=== PATIENT | female | born 1975 | race Caucasian/White ===

== ENCOUNTER 2017-09-27 08:04 | Day surgery (SDC) | payer OTHER ==
[~2017-09-27] VITALS: Ht 170.2 cm; Wt 58.2 kg
[~2017-09-27 08:04] MED LIST: BUPIVACAINE 0.25% ONE; ISOSULFAN BLUE 10 MG/ML, 5ML IV ONE; THYR60TA PO
[2017-09-27] MEDS ORDERED: ONDANSETRON ODT 8 MG PO ONE (09:00)
[2017-09-27] MEDS ORDERED: OXYcodone IR 5MG TABLET PO ONE (09:00)
[2017-09-27] MEDS ORDERED: ACETAMINOPHEN 500 MG TABLET PO ONE (09:00)
[2017-09-27] MEDS ORDERED: DIAZEPAM 5 MG TABLET PO ONE ×2 (09:00→15:00)
[2017-09-27] MEDS ORDERED: SCOPOLAMINE PATCH, 1.5MG PATCH.TD72 TD ONE (09:00)
[2017-09-27 09:21] VITALS: BP 116/76
[2017-09-27] MEDS ORDERED: FENTANYL PF 250 MCG/5ML ONE (09:32)
[2017-09-27] MEDS ORDERED: MIDAZOLAM 1 MG/ML, 2ML ONE (09:32)
[2017-09-27] MEDS ORDERED: FENTANYL PF 100 MCG/2ML IV PRN (10:00)
[2017-09-27] MEDS ORDERED: PROMETHAZINE 12.5 MG SUPP PR PRN (10:00)
[2017-09-27] MEDS ORDERED: HYDROmorphone 1 MG/ML, 1ML IV PRN (10:00)
[2017-09-27] MEDS ORDERED: MEPERIDINE/PF 25MG/0.5ML IVPush PRN (10:00)
[2017-09-27] MEDS ORDERED: OXYcodone 5 MG/5 ML ORAL.SOL UDC PO PRN (10:00)
[2017-09-27] MEDS ORDERED: BUPIVACAINE/PF-EPI 0.25% 1:200K IM ONE (10:54)
[2017-09-27] MEDS ORDERED: OXYcodone 5 MG/5 ML ORAL.SOL UDC ONE (13:42)
[2017-09-27] MEDS ORDERED: DIAZEPAM 5 MG TABLET ONE (14:16)
[2017-09-27] MEDS ORDERED: CEFAZOLIN 1,000 MG ONE (15:35)
[2017-09-27] MEDS ORDERED: DEXAMETHASONE 4 MG/ML, 5ML ONE (15:35)
[2017-09-27] MEDS ORDERED: PROPOFOL 10 MG/ML, 50ML ONE (15:35)
[2017-09-27] MEDS ORDERED: ONDANSETRON 2MG/ML, 2ML ONE (15:35)
[2017-09-27] MEDS ORDERED: KETOROLAC 30 MG/1 ML ONE (15:35)
== END 2017-09-27 16:40 ==
LOC: OUT 08:04
PROVIDERS: ATTEND Surgery
DX: C50.912 Malignant neoplasm of unspecified site of left female breast (principal); E03.9 Hypothyroidism, unspecified; Z98.890 Other specified postprocedural states; Z72.89 Other problems related to lifestyle
CPT/HCPCS: 19303; 38525; 88305; 88307; 88331; J0690; J1100; J1885; J2250; J2405; J2704; J3010; J3490

== ENCOUNTER → 2017-10-18 | Outpatient (CLI) | payer OTHER ==
[~2017-10-18] MED LIST changes: -BUPIVACAINE 0.25% ONE; -ISOSULFAN BLUE 10 MG/ML, 5ML IV ONE
== END | disposition home or self-care (01) ==
LOC: ROC 14:09
PROVIDERS: ATTEND Radiology Radiation Oncology
DX: Z08 Encounter for follow-up examination after completed treatment for malignant neoplasm (principal); C50.912 Malignant neoplasm of unspecified site of left female breast
CPT/HCPCS: 99214; G0463

== ENCOUNTER 2017-10-25 06:03 | Day surgery (SDC) | payer OTHER ==
[~2017-10-25] VITALS: Ht 170.2 cm; Wt 57.0 kg
[2017-10-25] MEDS ORDERED: LACTATED RINGERS 1,000 ML IV SCH (06:34)
[2017-10-25 06:39] VITALS: BP 101/65
[2017-10-25] MEDS ORDERED: HEPARIN 1,000 UNITS/ML, 10ML ONE (06:53)
[2017-10-25] MEDS ORDERED: BUPIVACAINE/PF-EPI 0.5% 1:200K ONE (06:53)
[2017-10-25] MEDS ORDERED: ONDANSETRON 2MG/ML, 2ML ONE ×2 (07:28)
[2017-10-25] MEDS ORDERED: FENTANYL PF 100 MCG/2ML ONE ×2 (07:28)
[2017-10-25] MEDS ORDERED: KETOROLAC 30 MG/1 ML ONE (07:28)
[2017-10-25] MEDS ORDERED: CEFAZOLIN 1,000 MG ONE (07:28)
[2017-10-25] MEDS ORDERED: MIDAZOLAM 1 MG/ML, 2ML ONE (07:28)
[2017-10-25] MEDS ORDERED: DEXAMETHASONE 4 MG/ML, 1ML ONE ×2 (07:28)
[2017-10-25] MEDS ORDERED: PROPOFOL 10 MG/ML, 50ML ONE (07:28)
[2017-10-25] MEDS ORDERED: HEPARIN 1,000 UNITS/ML, 10ML IV ONE (07:49)
[2017-10-25] MEDS ORDERED: BUPIVACAINE/PF 0.5% INFIL ONE (07:49)
[2017-10-25] MEDS ORDERED: LORazepam 2 MG/ML, 1ML IVPush PRN (08:30)
[2017-10-25] MEDS ORDERED: HALOPERIDOL 5 MG/ML IV PRN (08:30)
[2017-10-25] MEDS ORDERED: ONDANSETRON 2MG/ML, 2ML IV PRN (08:30)
[2017-10-25] MEDS ORDERED: MEPERIDINE/PF 25MG/0.5ML IVPush PRN (08:30)
[2017-10-25] MEDS ORDERED: OXYcodone 5 MG/5 ML ORAL.SOL UDC PO PRN (08:30)
[2017-10-25] MEDS ORDERED: HYDROmorphone 1 MG/ML, 1ML IV PRN (08:30)
[2017-10-25] MEDS ORDERED: ACETAMINOPHEN 325 MG TABLET PO PRN (08:30)
[2017-10-25] MEDS ORDERED: FENTANYL PF 100 MCG/2ML IV PRN (08:30)
[2017-10-25] MEDS ORDERED: OXYcodone 5 MG/5 ML ORAL.SOL UDC ONE (08:41)
[2017-10-25] MEDS ORDERED: OMNIPAQUE 350 MG/ML, 100ML BOTTLE ONE (15:12)
== END 2017-10-25 09:45 ==
LOC: OUT 06:03 → CFH 09:45 → EDSTATUS 14:00
PROVIDERS: ATTEND Surgery
DX: Z45.2 Encounter for adjustment and management of vascular access device (principal); C50.912 Malignant neoplasm of unspecified site of left female breast; E03.9 Hypothyroidism, unspecified; Z98.890 Other specified postprocedural states; Z87.891 Personal history of nicotine dependence
CPT/HCPCS: 36561; 71260; 74177; 77001; 78306; A9503; J1644; J3490; J7120; Q9967; J0690; J1100; J1885; J2250; J2405; J2704; J3010; C1788

== ENCOUNTER 2018-04-09 14:27 | Emergency (ER) | payer OTHER ==
[~2018-04-09] VITALS: Ht 170.2 cm; Wt 46.8 kg
[2018-04-09 14:38] VITALS: BP 130/78
[2018-04-09] MEDS ORDERED: ONDANSETRON 2MG/ML, 2ML IVPush ONE (15:00)
[2018-04-09] MEDS ORDERED: SODIUM CHLORIDE 0.9% 1,000ML IVBOLUS ONE ×2 (15:00→16:30)
[2018-04-09] MEDS ORDERED: SODIUM CHLORIDE FLUSH 10ML SYR IVF ONE (15:00)
[2018-04-09] MEDS ORDERED: ONDANSETRON 2MG/ML, 2ML ONE (15:04)
[2018-04-09] MEDS ORDERED: MELA10TA PO (15:13)
[2018-04-09 15:33] LABS: BASOPHILS # (AUTO) 0.01 x10^3/uL (0-0.1); BASOPHILS % (AUTO) 0 % (0-1); EOSINOPHILS # (AUTO) 0.13 x10^3/uL (0-0.4); EOSINOPHILS % (AUTO) 2 % (1-7); LYMPHOCYTES # (AUTO) 0.67 x10^3/uL (1-3.4); LYMPHOCYTES % (AUTO) 9 % (22-44); MD NO; MEAN CORPUSCULAR HEMOGLOBIN 33.2 pg (27.0-34.8); MEAN CORPUSCULAR HGB CONC 34.6 g/dL (32.4-35.8); MEAN CORPUSCULAR VOLUME 95.9 fL (80-100); MEAN PLATELET VOLUME 8.2 fL (7.4-10.4); MONOCYTES # (AUTO) 0.24 x10^3/uL (0.2-0.8); MONOCYTES % (AUTO) 3 % (2-9); NEUTROPHILS % (AUTO) 85 % (42-75); PLATELET COUNT 395 x10^3/uL (130-400); RED BLOOD COUNT 4.36 x10^6/uL (3.82-5.3); RED CELL DISTRIBUTION WIDTH 12.8 % (9.6-15.2)
[2018-04-09 15:39] LABS: ALBUMIN 4.5 g/dL (3.4-5.0); ANION GAP 13 mmol/L (5-15); CALCIUM 9.8 mg/dL (8.5-10.1); CHLORIDE 108 mmol/L (98-107)
[2018-04-09 15:45] LABS: ALANINE AMINOTRANSFERASE 74 U/L (12-78); ALKALINE PHOSPHATASE 74 U/L (45-117); BILIRUBIN,TOTAL 0.8 mg/dL (0.2-1.0); CREATININE 0.76 mg/dL (0.55-1.02); TOTAL PROTEIN 8.4 g/dL (6.4-8.2)
--- NOTE | 2018-04-09 16:32 | NUR ---
LUNCH RN: PT RESTING IN BED. PT HAS NO NEEDS. VSS AT THIS TIME.
--- NOTE | 2018-04-09 16:34 | NUR ---
LUNCH RN: PT TO LUNCH AT THIS TIME.
[2018-04-09] MEDS ORDERED: OMNIPAQUE 350 MG/ML, 75ML BOTTLE ONE (16:46)
--- NOTE | 2018-04-09 17:08 | NUR ---
DR. GATES AT BEDSIDE.
--- NOTE | 2018-04-09 18:00 | NUR ---
Patient/Caregiver given discharge instructions and they have confirmed that they understand the instructions. Patient ambulatory with steady gait.
== END 2018-04-09 18:01 | disposition home or self-care (01) ==
LOC: ED 16:30
DX: K52.89 Other specified noninfective gastroenteritis and colitis (principal); E86.0 Dehydration; Z85.3 Personal history of malignant neoplasm of breast
CPT/HCPCS: 36415; 71046; 71260; 80053; 84703; 85025; 96361; 96374; 99284; J2405; J7030; Q9967

== ENCOUNTER → 2018-08-15 | Outpatient (CLI) | payer OTHER ==
[~2018-08-15] MED LIST changes: +ASPI-496 PO; +GABA300C10 PO; +MELA10TA PO; +TAMO20TA PO
[2018-08-15 09:30] LABS: MEAN CORPUSCULAR HEMOGLOBIN 33.5 pg (27.0-34.8); MEAN CORPUSCULAR VOLUME 95.8 fL (80-100); MEAN PLATELET VOLUME 7.9 fL (7.4-10.4); PLATELET COUNT 339 x10^3/uL (130-400); RED BLOOD COUNT 4.32 x10^6/uL (3.82-5.3); RED CELL DISTRIBUTION WIDTH 13.8 % (9.6-15.2)
[2018-08-15 09:39] LABS: INTERNATIONAL NORMALIZED RATIO 0.98 (0.93-1.1); PROTHROMBIN TIME 10.3 Seconds (9.6-11.5)
[2018-08-15 09:41] LABS: ALANINE AMINOTRANSFERASE 26 U/L (12-78); ALBUMIN 3.9 g/dL (3.4-5.0); ANION GAP 6 mmol/L (5-15); CALCIUM 8.6 mg/dL (8.5-10.1); CHLORIDE 104 mmol/L (98-107); CREATININE 0.66 mg/dL (0.55-1.02)
[2018-08-15 09:45] LABS: ALKALINE PHOSPHATASE 81 U/L (45-117); BILIRUBIN,TOTAL 0.5 mg/dL (0.2-1.0); TOTAL PROTEIN 8.1 g/dL (6.4-8.2)
[2018-08-15 10:04] LABS: BASOPHILS # (AUTO) 0.01 x10^3/uL (0-0.1); BASOPHILS % (AUTO) 0 % (0-1); EOSINOPHILS # (AUTO) 0.05 x10^3/uL (0-0.4); EOSINOPHILS % (AUTO) 2 % (1-7); LYMPHOCYTES # (AUTO) 0.52 x10^3/uL (1-3.4); LYMPHOCYTES % (AUTO) 18 % (22-44); MD SCAN; MONOCYTES % (AUTO) 11 % (2-9); NEUTROPHILS # (AUTO) 1.94 x10^3/uL (1.8-6.8); NEUTROPHILS % (AUTO) 69 % (42-75)
== END | disposition home or self-care (01) ==
LOC: STAR 08:42
PROVIDERS: ATTEND Surgery
DX: Z01.818 Encounter for other preprocedural examination (principal); Z85.3 Personal history of malignant neoplasm of breast
CPT/HCPCS: 36415; 80053; 84703; 85025; 85610

== ENCOUNTER 2018-09-18 13:44 | Day surgery (SDC) | payer OTHER ==
[~2018-09-18] VITALS: Ht 170.2 cm; Wt 50.8 kg
[2018-09-18] MEDS ORDERED: LACTATED RINGERS 1,000 ML IV SCH (14:05)
[2018-09-18] MEDS ORDERED: MIDAZOLAM 1 MG/ML, 2ML ONE (14:06)
[2018-09-18] MEDS ORDERED: FENTANYL PF 250 MCG/5ML ONE (14:06)
[2018-09-18 14:14] VITALS: BP 114/83
[2018-09-18] MEDS ORDERED: BUPIVACAINE/EPI 0.5% 1:200K ONE (14:17)
[2018-09-18] MEDS ORDERED: ISOSULFAN BLUE 10 MG/ML, 5ML IV ONE (14:18)
[2018-09-18] MEDS ORDERED: FAMOTIDINE 20 MG TABLET PO ONE (14:30)
[2018-09-18] MEDS ORDERED: OxyconTIN ER 20 MG TAB.ER PO ONE (14:30)
[2018-09-18] MEDS ORDERED: ACETAMINOPHEN 500 MG TABLET PO ONE (14:30)
[2018-09-18] MEDS ORDERED: GABAPENTIN 300 MG CAPSULE PO ONE (14:30)
[2018-09-18] MEDS ORDERED: PROPOFOL 100 ML ONE (14:47)
[2018-09-18 14:51] LABS: HCG UR SG 1.028 (1.003-1.030)
[2018-09-18] MEDS ORDERED: SCOPOLAMINE PATCH, 1.5MG PATCH.TD72 TD ONE (15:06)
[2018-09-18] MEDS ORDERED: MEPERIDINE/PF 25MG/0.5ML IVPush PRN (16:00)
[2018-09-18] MEDS ORDERED: HYDROmorphone 2 MG/ML, 1ML IVPush PRN (16:00)
[2018-09-18] MEDS ORDERED: FENTANYL PF 100 MCG/2ML IV PRN (16:00)
[2018-09-18] MEDS ORDERED: LABETALOL 5MG/ML, 20ML IV PRN (16:00)
[2018-09-18] MEDS ORDERED: ALBUTEROL SULFATE 2.5 MG/3 ML NPPB PRN (16:00)
[2018-09-18] MEDS ORDERED: DIAZEPAM 5 MG/ML, 2ML IVPush PRN (16:00)
[2018-09-18] MEDS ORDERED: OXYcodone 5 MG/5 ML ORAL.SOL UDC PO PRN (16:00)
[2018-09-18] MEDS ORDERED: PROMETHAZINE 25 MG/ML, 1ML IV PRN (16:00)
[2018-09-18] MEDS ORDERED: ACETAMINOPHEN 325 MG TABLET PO PRN (16:00)
[2018-09-18] MEDS ORDERED: KETOROLAC 30 MG/1 ML IV PRN (16:00)
[2018-09-18] MEDS ORDERED: hydrALAzine 20 MG/ML, 1ML IV PRN (16:00)
[2018-09-18] MEDS ORDERED: KETOROLAC 30 MG/1 ML ONE (16:54)
[2018-09-18] MEDS ORDERED: OXYcodone 5 MG/5 ML ORAL.SOL UDC ONE (16:55)
[2018-09-18] MEDS ORDERED: DEXAMETHASONE 4 MG/ML, 1ML ONE (18:14)
[2018-09-18] MEDS ORDERED: PROPOFOL 10 MG/ML, 20ML ONE (18:14)
[2018-09-18] MEDS ORDERED: ONDANSETRON 2MG/ML, 2ML ONE (18:14)
[2018-09-18] MEDS ORDERED: CEFAZOLIN 1,000 MG ONE (18:14)
== END 2018-09-18 18:15 | disposition home or self-care (01) ==
LOC: OR 13:44
PROVIDERS: ATTEND Surgery
DX: Z40.01 Encounter for prophylactic removal of breast (principal); N64.89 Other specified disorders of breast; E03.9 Hypothyroidism, unspecified; F41.9 Anxiety disorder, unspecified; Z79.899 Other long term (current) drug therapy; Z90.12 Acquired absence of left breast and nipple; Z92.3 Personal history of irradiation; Z92.21 Personal history of antineoplastic chemotherapy; Z98.890 Other specified postprocedural states; Z83.3 Family history of diabetes mellitus; Z82.49 Family history of ischemic heart disease and other diseases of the circulatory system; Z80.0 Family history of malignant neoplasm of digestive organs
CPT/HCPCS: 19303; 81025; 88307; C1729; J0690; J1100; J1885; J2250; J2405; J2704; J3010; J7120